=== PATIENT | male | born 1995 | race African-American/Black ===

== ENCOUNTER 2016-05-15 14:28 | Emergency (ER) | payer SELFPAY ==
[~2016-05-15] VITALS: Ht 185.4 cm; Wt 59.0 kg
[2016-05-15] MEDS ORDERED: KETAMINE HCL 50 MG/ML 10ML VIAL IV ONE (16:00)
[2016-05-15] MEDS ORDERED: ceFAZolin 1GM/50ML D5W 50 ML IV ONE (16:45)
[2016-05-15] MEDS ORDERED: MORPHINE SULFATE 4 MG/ML SYRG IV ONE (18:00)
[2016-05-15] MEDS ORDERED: ONDANSETRON HCL 4 MG/2 ML VIAL IV ONE (18:00)
[2016-05-15 19:31] VITALS: BP 119/59
== END 2016-05-15 20:01 | disposition short-term general hospital (02) ==
LOC: ER 14:28 → EDBD 14:28 → EDUNIT# 14:28 → ER 20:01
DX: S52.502B Unspecified fracture of the lower end of left radius, initial encounter for open fracture type I or II (principal); Z88.0 Allergy status to penicillin; F17.210 Nicotine dependence, cigarettes, uncomplicated; V49.9XXA Car occupant (driver) (passenger) injured in unspecified traffic accident, initial encounter; Y93.89 Activity, other specified; Y99.9 Unspecified external cause status; Y92.89 Other specified places as the place of occurrence of the external cause; R51 Headache
CPT/HCPCS: 70450; 73100; 73110; 94761; 96365; 96375; 99152; 99285; J0690; J2270; J2405